=== PATIENT | female | born 1960 | race African-American/Black ===

== ENCOUNTER → 2017-12-13 | Outpatient (CLI) | payer OTHER ==
[~2017-12-13] MED LIST: ASPIRIN EC325 MG PO; EFFIENT10 MG PO; LIPITOR 20 MG T20 M1 PO; LIPITOR10 MG PO; METOPROLOL SUCC25 M1 PO; TOPROL XL25 MG PO
== END ==
LOC: RAD 01:52
DX: Z12.31 Encounter for screening mammogram for malignant neoplasm of breast (principal)

== ENCOUNTER → 2019-05-16 | Outpatient (CLI) | payer OTHER | LOC: RAD 11:23 | DX: Z12.31 Encounter for screening mammogram for malignant neoplasm of breast (principal) ==